=== PATIENT | female | born 1950 | race Caucasian/White ===

== ENCOUNTER 2022-05-12 09:44 | Day surgery (SDC) | payer OTHER, BC ==
[2022-05-12] MEDS ORDERED: ZOLEDRONIC ACID/MAN/WATER 5 MG/100 ML INFUS..BTL IVPB ONE (10:15)
[2022-05-12] MEDS ORDERED: ACETAMINOPHEN 325 MG TABLET (FP) ONE (10:19)
[2022-05-12] MEDS ORDERED: ACETAMINOPHEN 325 MG TABLET (FP) PO ONE (10:30)
[2022-05-12 10:37] VITALS: BP 129/64; RESP 18; TEMP 98.3
[2022-05-12 11:09] VITALS: PULSE 68
== END 2022-05-12 11:10 | disposition home or self-care (01) ==
LOC: FINFUSION 09:44 → FM/S 09:51 → FINFUSION 11:10
PROVIDERS: ATTEND Internal Medicine Endocrinology, Diabetes & Metabolism
PROC: 3E033GC Introduction of Other Therapeutic Substance into Peripheral Vein, Percutaneous Approach (ICD-10-PCS; principal; 2022-05-12)
DX: M81.0 Age-related osteoporosis without current pathological fracture (principal)
CPT/HCPCS: 96365; J3489